=== PATIENT | male | born 1960 | race Caucasian/White ===

== ENCOUNTER 2024-02-24 13:37 | Emergency (ER) | payer OTHER ==
[~2024-02-24] VITALS: Ht 177.8 cm; Wt 79.4 kg
[2024-02-24 13:52] VITALS: BP 144/80; PULSE 64; RESP 18; TEMP 98.7; O2SAT 99
== END 2024-02-24 14:14 | disposition home or self-care (01) ==
LOC: ER 13:37
DX: S99.912A Unspecified injury of left ankle, initial encounter (principal); X50.1XXA Overexertion from prolonged static or awkward postures, initial encounter; Y93.55 Activity, bike riding; Y92.488 Other paved roadways as the place of occurrence of the external cause; Y99.8 Other external cause status
CPT/HCPCS: 99283; 73610-LT